=== PATIENT | female | born 1995 | race African-American/Black ===

== ENCOUNTER → 2020-02-11 | Outpatient (CLI) | payer BC, MEDICAID ==
--- NOTE | 2020-02-11 17:06 | RADIOLOGY REPORT (SQ) ---
EXAM DESCRIPTION: U/S QN1DAIC TRNABD 1GES W/ODOP IMAGES COMPLETED DATE/TIME: 02/11/2020 4:42 pm REASON FOR STUDY: Z34.01 ENCNTR FOR SUPRVSN OF NORMAL FIRST PREG, FIRST TRIMESTER Z34.01 ENCNTR FOR SUPRVSN OF NORMAL FIRST PREG, FIRST TRIMES COMPARISON: None. TECHNIQUE: Transabdominal static and realtime grayscale images acquired of the pelvis. Additional se lected spectral and color Doppler images recorded. All images stored on PACs. bHCG: Unknown CLINICAL DATES: LMP 11/07/2019. 13 weeks 5 days LIMITATIONS: None. FINDINGS: FETUS: Single Living intrauterine . ULTRASOUND EGA: 8 weeks 0 days ULTRASOUND ALEX: 09/22/2020 EFW: Not applicable less than 20 weeks. CRL: 1.6 cm. FHR: 165 beats per minute. SURVEY: Too early to assess. AMNIOTIC FLUID: Adequate amount. PLACENTA: Not yet developed due to early gestation. SUBCHORIONIC BLEED: No SIZE OF BLEED: Not applicable. UTERUS: No masses. No anomalies. CERVICAL LENGTH: 2.5 cm. Closed. RIGHT ADNEXA: Normal ovary with normal vascular flow. 4.4 x 3.8 x 4 cm. 3.5 x 3.1 x 2.7 cm corpus l uteum No adnexal free fluid. No adnexal masses. LEFT ADNEXA: Ovary not seen. No adnexal free fluid. No adnexal masses. FREE FLUID: None. OTHER: No other significant finding. IMPRESSION: LIVING INTRAUTERINE . EGA 8 weeks 0 days Trimester of : First trimester - 0 to 13 weeks. TECHNICAL DOCUMENTATION: JOB ID: [id number] 2010 [employer]- All Rights Reserved rev-01/09 Reading location - IP/workstation name: [email or web address]
== END ==
LOC: RAD 14:55
PROVIDERS: ATTEND Midwife
DX: Z34.01 Encounter for supervision of normal first pregnancy, first trimester (principal); Z3A.08 8 weeks gestation of pregnancy
CPT/HCPCS: 76801

== ENCOUNTER 2020-09-22 09:50 | Outpatient (CLI) | payer BC, MEDICAID ==
[2020-09-22 11:09] LABS: BACTERIA (WET MOUNT) 4+ BACTERIA SEEN; EPITHELIALS (WET MOUNT) 4+ EPITHELIALS SEEN; RBCS (WET MOUNT) RARE RBCS SEEN; T.VAGINALIS (WET MOUNT) NO TRICHOMONAS SEEN; WBCS (WET MOUNT) 2+ WBCS SEEN; YEAST (WET MOUNT) NO YEAST SEEN
[2020-09-22 11:29] LABS: APPEARANCE,URINE SLIGHTLY-CLOUDY; BILIRUBIN,URINE NEGATIVE (NEGATIVE); COLOR,URINE YELLOW; GLUCOSE, URINE 50 mg/dL (NEGATIVE); KETONES,URINE NEGATIVE (NEGATIVE); LEUKOCYTE ESTERASE,URINE MODERATE (NEGATIVE); NITRITE,URINE NEGATIVE (NEGATIVE); PROTEIN,URINE NEGATIVE (NEGATIVE); URINE SPECIFIC GRAVITY 1.009; UROBILINOGEN,URINE NEGATIVE mg/dL (<2.0)
[2020-09-22 11:49] LABS: URINE AMPHETAMINES SCREEN NEGATIVE; URINE BARBITURATES SCREEN NEGATIVE; URINE BENZODIAZEPINES SCREEN NEGATIVE; URINE COCAINE SCREEN NEGATIVE; URINE METHADONE SCREEN NEGATIVE; URINE PHENCYCLIDINE SCREEN NEGATIVE
[2020-09-22 11:55] LABS: URINE MARIJUANA (THC) SCREEN UNCONFIRMED POSITIVE
--- NOTE | 2020-09-22 13:01 | Non Stress Test Report ---
Non Stress Test Datetime Report Generated by CPN: 09/22/2020 13:00 DEMOGRAPHIC Test Number: 1 EGA NST: 40.0 INDICATION Indication for Study (NST) Other: Labor Eval VITAL SIGNS Temperature - NST: 98.6 Pulse - NST: 66 RESP - NST: 20 NBPSYS NST: 134 NBPDIA NST: 85 MONITORING Monitor Explained: Monitor Explained; Patient Verbalized Understanding Time on Monitor: 09/22/2020 10:15 Time off Monitor: 09/22/2020 11:30 NST Duration: 75 NST INTERVENTIONS NST Interventions: PO Hydration Physician Notified NST: Tabitha Plummer BABY A: [id number] BABY A Movement : Present Contraction Frequency : 3-9 FHR Baseline : 140 Accelerations : 15X15 Decelerations : Late; Variable Variability : Moderate 6-25bpm NST Review: Meets Criteria for Reactive NST NST Review and Verified By : Avery Powers NSMira Results: Reactive NST REPORT Report Trigger: Send Report
[2020-09-22 13:04] LABS: CHLAM PCR NOT DETECTED (NOT DETECT)
== END 2020-09-22 12:46 | disposition home or self-care (01) ==
LOC: LC 09:50
PROVIDERS: ATTEND Obstetrics & Gynecology
DX: O36.8330 Maternal care for abnormalities of the fetal heart rate or rhythm, third trimester, not applicable or unspecified (principal); O47.1 False labor at or after 37 completed weeks of gestation; Z3A.40 40 weeks gestation of pregnancy; Z88.6 Allergy status to analgesic agent; Z88.8 Allergy status to other drugs, medicaments and biological substances
CPT/HCPCS: 59025; 87210; 82962; 81005; 87081; 80307; 87491; 87591; G0480 ×2; 80349